=== PATIENT | male | born 1965 | race African-American/Black ===

== ENCOUNTER → 2016-11-09 | Outpatient (CLI) | payer OTHER ==
[~2016-11-09] MED LIST: ASPI81CH CHEW; LOSA25TA PO; OXYC1TAB35 PO
[2016-11-09 10:02] LABS: AUTOMATED NEUTROPHIL # 5.7 TH/MM3 (1.8-7.7); BASOPHIL # 0.2 TH/MM3 (0-0.2); EOSINOPHIL # 0.3 TH/MM3 (0-0.4); EOSINOPHIL % 2.7 % (0.0-4.0); HEMATOCRIT 42.3 % (39.0-51.0); HEMO FLAGS DIFF FINAL; LYMPH % 32.5 % (9.0-44.0); LYMPHOCYTE # 3.3 TH/MM3 (1.0-4.8); MEAN CELL VOLUME 82.2 FL (80.0-100.0); MEAN CORPUSCULAR HEMOGLOBIN 27.8 PG (27.0-34.0); MEAN CORPUSCULAR HGB CONC 33.8 % (32.0-36.0); MONO % 7.6 % (0.0-8.0); NEUT % 55.2 % (16.0-70.0); PLATELET COUNT 250 TH/MM3 (150-450); RED BLOOD COUNT 5.15 MIL/MM3 (4.50-5.90); RED CELL DISTRIBUTION WIDTH 13.5 % (11.6-17.2); WHITE BLOOD COUNT 10.3 TH/MM3 (4.0-11.0)
[2016-11-09 11:38] LABS: ANION GAP 8 MEQ/L (5-15); AST (GOT) 21 U/L (15-37); BICARBONATE 26.7 MEQ/L (21.0-32.0); BLOOD UREA NITROGEN 15 MG/DL (7-18); CHLORIDE 105 MEQ/L (98-107); GLOMERULAR FILTRATION RATE 61 ML/MIN (>89); GLUCOSE,FASTING 106 MG/DL (74-99); SODIUM (NA) 140 MEQ/L (136-145)
[2016-11-09 11:41] LABS: ALKALINE PHOSPHATASE 59 U/L (45-117); ALT (GPT) 51 U/L (12-78); TOTAL BILIRUBIN ADULT 0.3 MG/DL (0.2-1.0)
--- NOTE | 2016-11-09 19:27 | EKG ---
Date Performed: 11/09/2016 Time Performed: 10:02:22 PTAGE: 50 years EKG: Sinus rhythm NORMAL ECG NO PREVIOUS TRACING DOCTOR: Jessica Gallo Interpretating Date/Time 11/09/2016 19:24:43
== END ==
LOC: CPRE 09:40
PROVIDERS: ATTEND Orthopaedic Surgery
DX: Z01.810 Encounter for preprocedural cardiovascular examination (principal); Z01.812 Encounter for preprocedural laboratory examination; M75.41 Impingement syndrome of right shoulder; M75.121 Complete rotator cuff tear or rupture of right shoulder, not specified as traumatic
CPT/HCPCS: 36415; 80053; 85025; 93005

== ENCOUNTER → 2016-11-13 | Day surgery (SDC) | payer OTHER ==
[~2016-11-13] VITALS: Ht 180.3 cm; Wt 120.5 kg
[~2016-11-13] MED LIST changes: +ACETAMINOPHEN/HYDROcodone 325 MG/5 MG TAB PO PRN; +BUPIVACAINE HCL PF 0.5% 30 ML VIAL NERV BLOCK ONE; +CHLORHEXIDINE GLUCONATE 2 % 1 PACK (2 CLOTHS) TOPICAL PRN; +DO NOT ADM ANY ANTICOAGULANT DRUGS PRN; +EPINEPHrine HCL (1:1000) 30 MG/30 ML VIAL ONE; +FAMOTIDINE 20 MG/2 ML VIAL ONE; +INSULIN HUMAN REGULAR 1,000 UNITS/10 ML VIAL SQ PRN; +LACTATED RINGER'S 1000 ML INJ 1,000 ML IV ONE; +LACTATED RINGER'S 1000 ML IV PRN; +METOPROLOL TARTRATE 25 MG TAB PO PRN; +MIDAZOLAM HCL 2 MG/2 ML VIAL ONE; +MORPHINE SULFATE 4 MG/ML INJ IV PUSH PRN; +ONDANSETRON HCL 4 MG/2 ML VIAL IV PRN; +ONDANSETRON HCL 4 MG/2 ML VIAL IV PUSH ONE; +POVIDONE IODINE 5% (ANTISEPSIS KIT) 4 APPLICATIONS EACH NARE PRN; +POVIDONE IODINE 7.5% SCRUB 118 ML BOTTLE TOPICAL SCH; +PROMETHAZINE INJ 25 MG/ML VIAL ONE; +PROPOFOL 200 MG/20 ML AMP IV ONE; +SODIUM CHLOR 0.9% 1000 ML INJ 1,000 ML IV SCH; +SODIUM CHLORID 0.9% 500 ML IV PRN; +SODIUM CHLORIDE 0.9% FLUSH 5 ML FLUSH IVF PRN; +SODIUM CHLORIDE 0.9% FLUSH 5 ML FLUSH IVF SCH; +VANCOMYCIN 1250 MG/NS 250 ML (for 70-84 kg) IV SCH; +ceFAZolin 2 GM PREMIX 50 ML IV SCH; +fentaNYL CITRATE 250 MCG/5 ML AMP ONE
[2016-11-13 10:57] VITALS: BP 138/85; PULSE 75; RESP 16; TEMP 98.5; O2SAT 97
[2016-11-13 17:26] VITALS: BP 144/86; PULSE 79; RESP 18; TEMP 96.9; O2SAT 99
--- NOTE | 2016-11-15 22:30 | MP ---
cc: VESTA HARDIN DATE OF SURGERY 11/13/2016 PREOPERATIVE DIAGNOSIS Rotator cuff tear right shoulder. POSTOPERATIVE DIAGNOSIS Rotator cuff tear right shoulder. OPERATIVE PROCEDURE 1. Arthroscopic surgery right shoulder consisting of the following; one debridement of anterior labral tears right shoulder joint. 2. Arthroscopic rotator cuff repair. 3. Modified Christopher procedure (coplaning lateral and the right clavicle). SURGEON Dr. Hardin. ANESTHESIA General TECHNIQUE After induction of general anesthesia, great care and time was taken to position this very large individual supported with Biomet hip positioners and good padding underneath all the pegs. Axillary roll was placed. The well leg was well-padded and both lower legs secured with good padding. Arm was placed in traction with 15 pounds using Arthrex in about 35-40 degrees of abduction and 10 degrees of flexion. Right shoulder girdle thoroughly prepped with alcohol and ChloraPrep and draped in routine fashion. The bony prominences were marked and arthroscope introduced through the posterior soft spot and two or three passes had to be made to get into the joint because of this patient's large size. Once we got in the joint we had good visualization. The glenoid and humeral head was normal. There were no obvious rotator cuff tears. Biceps tendon was in proper location in its groove with no dislocation. There were minimal degenerative changes of the subscapularis. Anterior portal established by punching through with a Wissinger ankush and establishing anterior portal. The probe was shaver brought in. Debridement of the significant tears and synovitis of the anterior labrum were carried out. Biceps tendon was checked by pulling on it with the cannula etc. and there was no indication of any problem with the biceps tendon in the groove. The superior labrum but did not show any obvious tearing. There was some overhang of the labrum that was debrided. Surgery was then transferred to the subacromial space where bursectomy was carried out, followed by acromioplasty with release of the coracoacromial ligament and coplaning lateral end of the clavicle. Examination of the rotator cuff area, however, to our surprise showed a fairly significant tear approximately 15 mm from front to back of the supraspinatus and the bone was debrided and we used a Arthrex anchor. The first anchor broke because of the dense bone. The broken piece was retrieved except for a small piece which floated away, could not be retrieved, but these about biosorbable. The suture was removed and then the punch was placed through the same hole. A cortical tap was used and then a second anchor placed in excellent position. Two sutures were placed in a horizontal mattress fashion. There was not enough space for another horizontal mattress suture, therefore, the other suture from the anchor was removed and instead of that a #2 fiber loop was plastered through the center of the rotator cuff and then all three suture ends were then pulled over and anchored in a second row with a swivel lock anchor. Final repair position looked good. The joint was debrided, subacromial space was debrided. There were a few metallic fragments from the end of the shaver and these were all gotten rid of. Instrumentation withdrawn. wounds closed with nylon. Dressing applied with Xeroform, 4x4s, ABD and Medipore tape and an ultra sling applied. The patient tolerated the procedure well. TRANSFUSIONS None. POSTOPERATIVE CONDITION Satisfactory. PROGNOSIS Guarded to good. MD DUC Moss/ARTHUR /3:27 PM /10:19 PM
== END | disposition home or self-care (01) ==
LOC: HSDC 09:51
PROVIDERS: ATTEND Orthopaedic Surgery
DX: M75.101 Unspecified rotator cuff tear or rupture of right shoulder, not specified as traumatic (principal); M75.41 Impingement syndrome of right shoulder
CPT/HCPCS: 01630; 29824; 29827; C1713; J0171; J0690; J2250; J2405; J2550; J3010; J3370; J7050; J7120